=== PATIENT | male | born 1935 ===

== ENCOUNTER 2019-08-21 17:11 | Outpatient (CLI) | payer MEDICARE ==
[2019-08-21 17:22] LABS: INR-International Normal Ratio 3.5; Prothrombin Time 34.8 SEC (12.0-14.7)
== END 2019-08-21 17:12 | disposition home or self-care (01) ==
LOC: MADLABSP 17:11
PROVIDERS: ATTEND Internal Medicine
DX: Z51.81 Encounter for therapeutic drug level monitoring (principal); I82.529 Chronic embolism and thrombosis of unspecified iliac vein; Z79.01 Long term (current) use of anticoagulants
CPT/HCPCS: 85610

== ENCOUNTER 2019-09-04 15:26 | Outpatient (CLI) | payer MEDICARE ==
[2019-09-04 17:14] LABS: INR-International Normal Ratio 1.2
== END 2019-09-04 15:27 | disposition home or self-care (01) ==
LOC: MADLAB 15:26
PROVIDERS: ATTEND Physician Assistant Medical
DX: Z51.81 Encounter for therapeutic drug level monitoring (principal); I82.529 Chronic embolism and thrombosis of unspecified iliac vein; Z79.01 Long term (current) use of anticoagulants
CPT/HCPCS: 85610

== ENCOUNTER 2019-09-11 15:45 | Outpatient (CLI) | payer MEDICARE ==
[2019-09-11 16:05] LABS: INR-International Normal Ratio 1.2; Prothrombin Time 15.6 SEC (12.0-14.7)
== END 2019-09-11 15:46 | disposition home or self-care (01) ==
LOC: MADLAB 15:45
PROVIDERS: ATTEND Physician Assistant Medical
DX: I82.529 Chronic embolism and thrombosis of unspecified iliac vein (principal)
CPT/HCPCS: 85610

== ENCOUNTER 2019-09-18 15:49 | Outpatient (CLI) | payer MEDICARE ==
[2019-09-18 16:06] LABS: Prothrombin Time 13.5 SEC (12.0-14.7)
== END 2019-09-18 15:50 | disposition home or self-care (01) ==
LOC: MADLAB 15:49
PROVIDERS: ATTEND Internal Medicine
DX: I82.529 Chronic embolism and thrombosis of unspecified iliac vein (principal)
CPT/HCPCS: 85610